=== PATIENT | male | born 1975 | race Two or more races ===

== ENCOUNTER 2019-06-11 10:19 | Emergency (ER) | payer MEDICAID, OTHER ==
[~2019-06-11] VITALS: Ht 170.2 cm; Wt 108.0 kg
--- NOTE | 2019-06-11 10:30 | NUR ---
c/o headache and high blood pressure since last night. Patient a/ox4, breathing even and unlabored, no sob noted, needs attended. kept comfortable. Attached to the quality assurance monitor final.
[2019-06-11] MEDS ORDERED: IBUPROFEN 600 MG TABLET PO ONE ×2 (10:50→11:00)
[2019-06-11 10:56] LABS: BASOPHILS # (AUTO) 0.1 /CMM (0.0-0.2); BASOPHILS % (AUTO) 0.7 % (0.0-2.0); EOSINOPHILS % (AUTO) 1.2 % (0.0-6.0); HEMATOCRIT 45 % (39-51); HEMOGLOBIN 15.5 g/dL (13.5-17.5); LYMPHOCYTES # (AUTO) 2.4 /CMM (0.8-4.8); LYMPHOCYTES % (AUTO) 24.9 % (20.0-44.0); MEAN CORPUSCULAR HGB CONC 35 g/dl (31.0-36.0); MEAN CORPUSCULAR VOLUME 84 fL (80-96); MONOCYTES # (AUTO) 0.6 /CMM (0.1-1.30); NEUTROPHILS # (AUTO) 6.4 /CMM (1.8-8.9); NEUTROPHILS % (AUTO) 67.2 % (43.0-81.0); PLATELET COUNT (AUTO) 223 /CMM (150-450); RED BLOOD CELL COUNT(AUTO) 5.36 MIL/uL (4.5-6.0); WHITE BLOOD COUNT (AUTO) 9.5 K/uL (4.3-11.0)
[2019-06-11 11:00] LABS: CALCIUM, SERUM 9.6 mg/dL (8.5-10.1); CARBON DIOXIDE 27 mmol/L (21-32); CHLORIDE 102 mmol/L (98-107); CREATININE 0.9 mg/dL (0.6-1.3); GLUCOSE 125 mg/dL (74-106); POTASSIUM 3.8 mmol/L (3.5-5.1); SODIUM SERUM 137 mmol/L (136-145); UREA NITROGEN, BLOOD 12 mg/dL (7-18)
[2019-06-11 11:16] LABS: ALANINE AMINOTRANSFERASE 52 U/L (12-78); ALBUMIN 4.1 g/dL (3.4-5.0); ALKALINE PHOSPHATASE 63 U/L (46-116); ASPARTATE AMINOTRANSFERASE 28 U/L (15-37); BILIRUBIN,TOTAL 0.5 mg/dL (0.2-1.0); TOTAL PROTEIN, SERUM 7.5 g/dL (6.4-8.2)
[2019-06-11 12:18] VITALS: BP 142/72
--- NOTE | 2019-06-11 12:18 | NUR ---
Patient discharged to home in stable condition. Written and verbal after care instructions given. Patient verbalizes understanding of instruction.
== END 2019-06-11 12:18 | disposition home or self-care (01) ==
LOC: ER 10:25
DX: R51 Headache (principal); I10 Essential (primary) hypertension
CPT/HCPCS: 36415; 80053-TC; 84484-TC; 85025-TC